=== PATIENT | male | born 1960 | race Caucasian/White ===

== ENCOUNTER 2020-08-27 21:04 | Emergency (ER) | payer OTHER ==
[2020-08-27 21:49] LABS: HEMOGLOBIN 17.8 gm/dl (14.0-17.5); WHITE BLOOD COUNT 11.2 K/UL (4.5-11.0)
[2020-08-27 21:53] LABS: RED BLOOD COUNT 7.65 M/UL (4.20-5.50)
[2020-08-27 22:04] LABS: BUN/CREATININE RATIO 15 (0-10)
== END 2020-08-28 04:07 | disposition short-term general hospital (02) ==
LOC: ER1 21:04
PROVIDERS: Family Medicine
DX: K31.1 Adult hypertrophic pyloric stenosis (principal); E11.9 Type 2 diabetes mellitus without complications; I10 Essential (primary) hypertension
CPT/HCPCS: 74018; 80053; 81001; 82550; 82553; 83605; 83690; 84484; 85025; 93005; 96374; 96375; 99285; J2270; J2405; J7030; Q9967